=== PATIENT | male | born 1980 | race African-American/Black ===

== ENCOUNTER 2025-01-10 23:58 | Emergency (ER) | payer SELFPAY ==
[~2025-01-10] VITALS: Ht 175.3 cm; Wt 82.0 kg
[2025-01-11 00:08] VITALS: BP 140/91; PULSE 105; RESP 20; O2SAT 100
== END 2025-01-11 00:56 | disposition left against medical advice (07) ==
LOC: ER 23:58
DX: M54.9 Dorsalgia, unspecified (principal); Z53.21 Procedure and treatment not carried out due to patient leaving prior to being seen by health care provider